=== PATIENT | female | born 1945 | race African-American/Black ===

== ENCOUNTER 2023-12-25 12:40 | Emergency (ER) | payer OTHER, BC, MEDICAID ==
[~2023-12-25] VITALS: Ht 177.8 cm; Wt 158.8 kg
[2023-12-25 12:44] VITALS: BP 120/65; RESP 17; O2SAT 97
[2023-12-25 13:15] VITALS: TEMP 98
[2023-12-25 14:40] VITALS: BP 136/75; PULSE 84; RESP 20; O2SAT 98
== END 2023-12-25 14:40 | disposition home or self-care (01) ==
LOC: MED 12:40
DX: I11.0 Hypertensive heart disease with heart failure (principal); I50.9 Heart failure, unspecified; E03.9 Hypothyroidism, unspecified; M06.9 Rheumatoid arthritis, unspecified; F32.9 Major depressive disorder, single episode, unspecified; Z86.73 Personal history of transient ischemic attack (TIA), and cerebral infarction without residual deficits; Z86.69 Personal history of other diseases of the nervous system and sense organs
CPT/HCPCS: 93005; 99283

== ENCOUNTER 2024-05-11 15:40 | Emergency (ER) | payer OTHER, BC, MEDICAID ==
[~2024-05-11] VITALS: Ht 165.1 cm; Wt 136.1 kg
[2024-05-11 16:10] VITALS: BP 116/55; PULSE 78; RESP 20; TEMP 97.8; O2SAT 96
[2024-05-11 17:04] LABS: BASOPHILS % (AUTO) 0.5 % (0.0-2.0); EOSINOPHILS # (AUTO) 0.1 K/uL (0-0.4); EOSINOPHILS % (AUTO) 3.8 % (0.0-4.0); HEMOGLOBIN 11.3 g/dL (12.0-16.0); LYMPHOCYTES # (AUTO) 1.3 K/uL (2.5-16.5); MEAN CORPUSCULAR HEMOGLOBIN 31 pg (27-31); MEAN CORPUSCULAR HGB CONC 33 g/dL (33-37); MEAN CORPUSCULAR VOLUME 93.5 fL (80-94); MONOCYTES # (AUTO) 0.5 K/uL (0.8-1.0); MONOCYTES % (AUTO) 11.8 % (1.7-9.3); NEUTROPHILS # (AUTO) 1.9 K/uL (1.8-7.7); NEUTROPHILS % (AUTO) 49.9 % (42.2-75.2); PLATELET COUNT (AUTO) 141 K/uL (140-450); RED BLOOD CELL COUNT(AUTO) 3.64 MIL/uL (4.20-5.40); RED CELL DISTRIBUTION WIDTH 14.4 % (11.6-13.7); WHITE BLOOD COUNT (AUTO) 3.9 K/uL (4.8-10.8)
[2024-05-11 17:20] LABS: ANION GAP 8.3 (8-16); CALCIUM 8.5 mg/dL (8.5-10.1); CHLORIDE 105 mmol/L (98-107); CREATININE 0.9 mg/dL (0.6-1.3); GLUCOSE 95 mg/dL (74-106); POTASSIUM 4.3 mmol/L (3.5-5.1); SODIUM SERUM 140 mmol/L (136-145); UREA NITROGEN, BLOOD 22 mg/dL (7-18)
[2024-05-11 17:25] LABS: ALBUMIN 2.7 g/dL (3.4-5.0); BILIRUBIN,DIRECT 0.1 mg/dL (0.0-0.3); TOTAL BILIRUBIN 0.2 mg/dL (0.0-1.0); TOTAL PROTEIN, SERUM 7.5 g/dL (6.4-8.2)
[2024-05-11 17:36] LABS: MAGNESIUM 1.8 mg/dL (1.8-2.4); PHOSPHORUS 3.4 mg/dL (2.5-4.9)
[2024-05-12 01:47] VITALS: TEMP 97.9
[2024-05-12] MEDS: ACETAMINOPHEN 325 MG TAB PO ONE (05:40)
[2024-05-12 12:39] VITALS: BP 173/87; PULSE 92; RESP 16; O2SAT 98
== END 2024-05-12 12:40 | disposition home or self-care (01) ==
LOC: MED 15:40
DX: Z71.1 Person with feared health complaint in whom no diagnosis is made (principal); I11.0 Hypertensive heart disease with heart failure; E03.9 Hypothyroidism, unspecified; Z86.73 Personal history of transient ischemic attack (TIA), and cerebral infarction without residual deficits; Z79.899 Other long term (current) drug therapy
CPT/HCPCS: 36415; 71045; 80048; 80076; 83735; 84100; 85025; 99285